=== PATIENT | male | born 1940 | race Caucasian/White ===

== ENCOUNTER 2017-12-27 15:34 | Observation (INO) | payer MEDICARE, BC ==
[2017-12-27 15:59] LABS: #Eosinphils 0.2 thou/uL (0.0-0.7); #Lymphocytes 1.3 thou/uL (1.20-3.40); #Monocytes 0.7 thou/uL (0.11-0.59); #Neutrophils 5.7 thou/uL (1.40-6.50); %Eosinophils 2.9 % (0.0-10.0); %Lymphocytes 16.7 % (21.0-51.0); %Monocytes 8.3 % (0.0-10.0); %Neutrophils 72.1 % (42.0-75.0); Mean Corpuscular HGB CONC 33.1 g/dL (32.0-36.0); Mean Corpuscular Hemoglobin 32.6 pg (27.0-31.0); Mean Corpuscular Volume 98.5 fl (80.0-94.0); Mean Platelet Volume 8.8 fL (7.4-10.4); Platelet Count 249 thou/uL (130-400); Red Blood Cell (RBC) Count 4.59 mill/uL (4.70-6.10); White Blood Cell (WBC) Count 7.9 thou/uL (4.8-10.8)
[2017-12-27 16:19] LABS: ALT (SGPT) 32 U/L (8-55); AST (SGOT) 35 U/L (5-34); Albumin 4.2 g/dL (3.4-4.8); Alkaline Phosphatase 53 U/L (40-150); Anion Gap 11 mmol/L (10-20); BUN (Urea Nitrogen) 12 mg/dL (8.4-25.7); Bilirubin, Total 0.5 mg/dL (0.2-1.2); CK (CPK) 258 U/L (30-200); Calc. Creatinine Clearance 0 mL/min (70-130); Calcium 9.5 mg/dL (7.8-10.44); Carbon Dioxide 30 mmol/L (23-31); Chloride 98 mmol/L (98-107); Estimated GFR-MDRD 79; Globulin 3.1 g/dL (2.4-3.5); Glucose 105 mg/dL (83-110); Potassium 3.9 mmol/L (3.5-5.1); Protein, Total 7.3 g/dL (5.8-8.1); Sodium 135 mmol/L (136-145)
[2017-12-27 16:23] LABS: Troponin I Less than 0.010 ng/mL (< 0.028)
--- NOTE | 2017-12-27 16:28 | RAD ---
ONE VIEW CHEST: History: Altered mental status. Comparison: 05-31-13 FINDINGS: Portable upright chest demonstrates sternotomy wires. Normal cardiac silhouette. The pulmonary vessel s and hilum are normal. Costophrenic angles are clear. No consolidation or mass. No pneumothorax or o sseous abnormalities. IMPRESSION: No acute cardiopulmonary process. POS: [facility]
--- NOTE | 2017-12-27 16:36 | CT ---
CT BRAIN WITHOUT CONTRAST: 12/27/17 HISTORY: Slurred speech, altered mental status. FINDINGS: No evidence of acute infarct, hemorrhage, midline shift or abnormal extra-axial fluid collections are seen. The ventricular size is appropriate and the basilar cisterns patent. The bony calvarium is int act. The visualized paranasal sinuses and mastoid air cells are well aerated. IMPRESSION: No CT evidence of acute intracranial process. POS: [facility]
[2017-12-27 16:37] LABS: CKMB 12.8 ng/mL (0-6.6)
[2017-12-27 18:47] VITALS: BMI 26.7
[2017-12-27] MEDS ORDERED: Ondansetron ODT 4 MG TAB SL PRN (18:50)
[2017-12-27] MEDS ORDERED: Ondansetron HCl/PF 4 MG/2 ML Vial IVP PRN (18:50)
[2017-12-27] MEDS ORDERED: Acetaminophen 325 MG TAB PO PRN ×2 (18:50→23:19)
[2017-12-27] MEDS ORDERED: Labetalol HCl 100 MG/20 ML VIAL SLOW IVP PRN (23:19)
[2017-12-27] MEDS ORDERED: Bisacodyl 5 MG TAB PO PRN (23:19)
[2017-12-27] MEDS ORDERED: hydrALAZINE 20 MG/ML VIAL SLOW IVP PRN (23:19)
[2017-12-27] MEDS ORDERED: Sodium Chloride 0.9% 1,000 ML IV SCH (23:45)
--- NOTE | 2017-12-28 00:09 | HP ---
PRIMARY CARE PHYSICIAN: Duran Mendoza M.D. CHIEF COMPLAINT: Slurred speech. HISTORY OF PRESENT ILLNESS: Mr. Bermudez is a pleasant 77-year-old gentleman who was seen at [facility] on 12/27/2017. He reports that 4 days ago, he developed numbness and stiffness over the right side of his mouth. He also reports difficulty speaking. His noticed yesterday that the right side of his face was dr daksha. He did not seek medical attention. His primary care physician convinced him to go to the [facility] today. The patient reports that his symptoms have improved. His speech is not slurred. REVIEW OF SYSTEMS: The following complete review of systems was negative, unless otherwise mentioned in the HPI or below: Constitutional: Weight loss or gain, ability to conduct usual activities. Skin: Rash, itching. Eyes: Double vision, pain. ENT/Mouth: Nose bleeding, neck stiffness, pain, tenderness. Cardiovascular: Palpitations, dyspnea on exertion, orthopnea. Respiratory: Shortness of breath, wheezing, cough, hemoptysis, fever or night sweats. Gastrointestinal: Poor appetite, abdominal pain, heartburn, nausea, vomiting, constipation, or diarr hea. Genitourinary: Urgency, frequency, dysuria, nocturia. Musculoskeletal: Pain, swelling. Neurologic/Psychiatric: Anxiety, depression. Allergy/Immunologic: Skin rash, bleeding tendency. PAST MEDICAL HISTORY: Significant for coronary artery disease, dyslipidemia, hypertension, and TIA 3 or 4 years ago. PAST SURGICAL HISTORY: Significant for coronary artery bypass graft. SOCIAL HISTORY: The patient drinks alcohol occasionally. He is an ex-smoker. He denies recreationa l drug use. FAMILY HISTORY: He denies any family history of coronary artery disease. ALLERGIES: He has no known drug allergies. CURRENT MEDICATIONS: Include aspirin 81 mg daily, Lipitor 40 mg daily, Nexium 20 mg daily, lisinopri l 40 mg daily, Toprol-XL 50 mg daily, and Centrum Silver multivitamins 1 tablet daily. CODE STATUS: I discussed his code status. He is FULL CODE. PHYSICAL EXAMINATION: GENERAL: On examination, Mr. Bermudez is awake and alert, not in acute distress. VITAL SIGNS: Blood pressure is 131/71, pulse is 59, he is breathing at rate of 16, and saturating 92 % on room air. He is afebrile. EYES: No scleral icterus. No conjunctival pallor. ENT: Moist mucosal membranes, no oropharyngeal erythema or exudates. NECK: Supple, nontender, normal range of movement, trachea is midline. RESPIRATORY: Accessory muscles of breathing are not active. Chest wall movements are symmetric bila terally. Lungs are clear to auscultation without wheeze, rhonchi or crepitations. CARDIOVASCULAR: S1 and S2 are heard, regular. Peripheral pulses are palpable. No carotid bruit, no pericardial rub. ABDOMEN: Soft, nontender, bowel sounds heard, no hepatomegaly, no splenomegaly. NEUROLOGIC: Cranial nerves II-XII are intact. No focal motor or sensory deficits. Deep tendon refl exes 2+, plantar reflexes downgoing bilaterally. MUSCULOSKELETAL: Power is 5/5 in all 4 extremities. SKIN: No rashes or subcutaneous nodules. LYMPHATIC: No cervical lymphadenopathy. PSYCHIATRIC: Normal mood, normal affect, patient is oriented to person, place, and time. LABORATORY DATA AND IMAGING: Mr. Bermudez's labs and investigations were reviewed. I reviewed his el ectrocardiogram, which shows normal sinus rhythm with premature ventricular complexes. I also review ed his chest x-ray, which does not show any pulmonary infiltrates. He also had a noncontrast CT scan of the brain, which did not reveal any acute intracranial process. He has an unremarkable CBC, decr eased sodium of 135, otherwise normal electrolytes, normal creatinine, elevated AST of 35, normal ALT , normal total bilirubin, normal alkaline phosphatase, elevated CK of 258, normal troponin I and norm al albumin. ASSESSMENT AND PLAN: Mr. Bermudez is a pleasant 77-year-old gentleman who was seen at [facility] on 12/27/2017. His problem list includes: 1. Cerebrovascular accident: Mr. Bermudez's presentation is consistent with a cerebrovascular accide nt. Symptoms lasted almost 4 days. He will be admitted to the hospital for further workup, includin g MRI of the brain, 2D echocardiogram, carotid Dopplers and Neurology Service consultation. He will be continued on aspirin. 2. Hyponatremia: Mild, rechecked. 3. Rhabdomyolysis: Mild. Hydrate patient and repeat CK levels. 4. Transaminitis: AST is elevated, likely secondary to rhabdomyolysis. Repeat AST level. 5. Coronary artery disease. Appears stable. 6. Hypertension: Monitor vital signs, titrate antihypertensives as needed. 7. Dyslipidemia: Continue statin. Many thanks for allowing me to participate in your patient's care. Please feel free to contact me wi th any questions or concerns. LEVEL OF RISK: High. LEVEL OF COMPLEXITY: High.
[2017-12-28 05:25] LABS: #Eosinphils 0.4 thou/uL (0.0-0.7); #Lymphocytes 1.2 thou/uL (1.20-3.40); #Monocytes 0.7 thou/uL (0.11-0.59); #Neutrophils 4.4 thou/uL (1.40-6.50); %Basophils 0.5 % (0.0-1.0); %Eosinophils 5.6 % (0.0-10.0); %Lymphocytes 18.4 % (21.0-51.0); %Monocytes 10.2 % (0.0-10.0); %Neutrophils 65.4 % (42.0-75.0); Hemoglobin 13.3 g/dL (14.0-18.0); Mean Corpuscular HGB CONC 32.6 g/dL (32.0-36.0); Mean Corpuscular Volume 98.2 fl (80.0-94.0); Platelet Count 218 thou/uL (130-400); Red Blood Cell (RBC) Count 4.17 mill/uL (4.70-6.10); White Blood Cell (WBC) Count 6.8 thou/uL (4.8-10.8)
[2017-12-28 05:49] LABS: AST (SGOT) 29 U/L (5-34); Anion Gap 11 mmol/L (10-20); BUN (Urea Nitrogen) 11 mg/dL (8.4-25.7); CK (CPK) 205 U/L (30-200); Calc. Creatinine Clearance 94 mL/min (70-130); Calcium 9.4 mg/dL (7.8-10.44); Carbon Dioxide 27 mmol/L (23-31); Cardiac Risk 3.2 (Less than 4.5); Chloride 102 mmol/L (98-107); Cholesterol 103 mg/dl (< 200 Desired); Estimated GFR-MDRD Greater than 90; Glucose 92 mg/dL (83-110); HDL Cholesterol 32 mg/dL (>60 Neg Risk); LDL Cholesterol, Calculated 44 mg/dL; Potassium 3.5 mmol/L (3.5-5.1); Sodium 136 mmol/L (136-145); Triglycerides 134 mg/dL (Less than 150)
--- NOTE | 2017-12-28 07:45 | ULT ---
BILATERAL CAROTID DUPLEX ULTRASOUND: DATE: 12/28/17 HISTORY: CVA. TECHNIQUE: Vidal scale ultrasound with color flow and spectral Doppler imaging of the extracranial carotid artery systems performed. FINDINGS: There is plaque formation on either side. The peak systolic velocity in the right ICA measures 79 cm/second with an end-diastolic velocity of 2 4 cm/second and a systolic ratio of 1.13. The peak systolic velocity in the left ICA measures 71 cm/second with an end-diastolic velocity of 20 cm/second and a systolic ratio of 0.72. Flow in both vertebral arteries remains antegrade. IMPRESSION: No evidence of hemodynamically significant stenosis. POS: [facility]
[2017-12-28 08:06] VITALS: TEMP 98.2
[2017-12-28] MEDS ORDERED: Enoxaparin Sodium 40 MG/0.4 ML SYRINGE SC SCH (09:00)
[2017-12-28] MEDS ORDERED: Lisinopril 20 MG TAB PO SCH (09:00)
[2017-12-28] MEDS ORDERED: Atorvastatin Calcium 40 MG TAB PO SCH (09:00)
[2017-12-28] MEDS ORDERED: Multivitamin W/ Minerals 1 TAB PO SCH (09:00)
[2017-12-28] MEDS ORDERED: Prevnar 13-Val Conj/PF 0.5 ML SYRINGE IM ONE ×2 (09:00→13:00)
--- NOTE | 2017-12-28 09:33 | MRI ---
NONCONTRAST ENHANCED MRI OF BRAIN: Date: 12/28/17 HISTORY: 77-year-old male with history of slurred speech, altered mental status. TECHNIQUE: Multiplanar, multisequence noncontrast enhanced MRI of brain obtained. FINDINGS: Images demonstrate diffuse cortical atrophy and deep white matter ischemic changes. Normal flow-voids seen in the major intracranial vessels. No evidence of acute areas of strokes or masses seen. No evidence of areas of diffusion restriction s een. IMPRESSION: Diffuse cortical atrophy. Otherwise unremarkable noncontrast enhanced MRI of brain. The patient has h ad previous bilateral cataract surgery. POS: [facility]
[2017-12-28 15:27] VITALS: BP 92/48
--- NOTE | 2017-12-28 18:19 | CON ---
DATE OF CONSULTATION: 12/28/2017 CONSULTING PHYSICIAN: Hospitalist service. IMPRESSION: 1. Questionable transient ischemic attack given the lack of findings on MRI despite a prolonged epis ode of left facial weakness. 2. Prior history of cerebrovascular accident. 3. Coronary artery disease. 4. Hyperlipidemia. 5. Hypertension. PLAN: Continue aspirin and statin as previously taken. HISTORY OF PRESENT ILLNESS: Mr. Bermudez is a 77-year-old gentleman who came in for evaluation after awakening with what appeared to be left facial droop and some tingling. This lasted throughout the d ay into the afternoon before resolving. His thought his face looked a bit asymmetric compared t o baseline. No other associated focal findings. He had an MRI of the brain done, which showed some cerebral atrophy. His carotid Doppler did not show any stenosis. Echocardiogram is pending. CBC an d CMP were both unremarkable as lipid ratio was 3.2. PAST MEDICAL HISTORY: As listed above. ALLERGIES: None reported. SOCIAL HISTORY: No tobacco or alcohol use. FAMILY HISTORY: Noncontributory. REVIEW OF SYSTEMS: Otherwise, negative for any other focal neurologic symptoms, headache, nausea, vo miting, vertigo, chest pain, or shortness of breath. PHYSICAL EXAMINATION: GENERAL: He is a healthy appearing elderly man, in no distress. VITAL SIGNS: Notable for blood pressure of 92/48 on one measurement. HEENT: Pupils are equal and reactive. Conjunctivae are clear. Oropharynx clear. Cranium normoceph alic, atraumatic. NECK: No lymphadenopathy noted. EXTREMITIES: No cyanosis noted. NEUROLOGIC: He was alert and cooperative. His speech is fluent and clear. Cranial nerve exam showe d a slight asymmetry in eyelid position, being slightly more open on the left. His blink frequency a ppeared to be symmetric. I did not note any facial weakness on the left as compared to the right. M otor exam showed good strength bilaterally. His gait is steady and independent. No abnormal movemen ts are seen. No tremor dysmetrias present. EKG shows sinus rhythm with occasional PVCs. SUMMARY: This is an elderly gentleman who presented with symptoms of a very mild stroke, which did n ot show up on MRI. I would continue aspirin and statin. He can follow up with Dr. Nunez.
== END 2017-12-28 17:29 | disposition home or self-care (01) ==
LOC: ERS 15:34 → 2SE 17:40
PROVIDERS: ADMIT Internal Medicine Infectious Disease; ATTEND Internal Medicine Infectious Disease
DX: I63.9 Cerebral infarction, unspecified (principal); R47.81 Slurred speech; R29.810 Facial weakness; R41.82 Altered mental status, unspecified; I25.10 Atherosclerotic heart disease of native coronary artery without angina pectoris; E78.5 Hyperlipidemia, unspecified; I10 Essential (primary) hypertension; E87.1 Hypo-osmolality and hyponatremia; M62.82 Rhabdomyolysis; R74.0 Nonspecific elevation of levels of transaminase and lactic acid dehydrogenase [LDH]; Z86.73 Personal history of transient ischemic attack (TIA), and cerebral infarction without residual deficits; Z95.1 Presence of aortocoronary bypass graft; Z79.82 Long term (current) use of aspirin; Z79.899 Other long term (current) drug therapy; Z98.41 Cataract extraction status, right eye; Z98.42 Cataract extraction status, left eye
CPT/HCPCS: 70450; 70551; 71045; 80048; 80053; 80061; 82550 ×2; 82553; 84450; 84484; 85025 ×2; 90670; 93005; 93306; 93880; 94760; 96372; 97139 ×4; 99285; G0009; G0378; G8978; G8979; G8980; G8987; G8988; G8989; 36415; 90471; G8999-GN-CH; G9158-GN-CH; G9186-GN-CH; J1650

== ENCOUNTER 2019-07-27 21:13 | Observation (INO) | payer MEDICARE, BC ==
[~2019-07-27 21:13] MED LIST: Dexamethasone 20 MG/5 ML VIAL ONE; Lidocaine 1% PF 5 ML VIAL ONE; Ondansetron PF 4 MG/2 ML Vial ONE; PHENYLEPHRINE-NS 100 MCG/ML 10 ML SYRINGE ONE; PROPOFOL 200 MG/20 ML VIAL ONE; Succinylcholine Chloride 20 MG/ML 10 ml SYRINGE FS ONE; ePHEDrine 50 MG/ML VIAL ONE
--- NOTE | 2019-07-27 22:17 | CON ---
DATE OF CONSULTATION: 07/27/2019 CHIEF COMPLAINT: "Food stuck in my chest." HISTORY OF PRESENT ILLNESS: Mr. Bermudez is an 78-year-old man, who has had history of gastroesophageal reflux disease and takes Nexium [id number] once daily that keeps these symptoms pretty well controlled for years. For the last 5 years, he has had intermittent solid food dysphagia. The food sticks in the lower substernal region and he can usually drink warm water and wash the bolus down or that will help him vomit with the bolus back up. He gets these episodes around once every couple of months, but he actually had 2 episodes this week. Today, he ate chicken pot pie around 11 a.m. and the food bolus has been stuck since then. He has had no abdominal pain, diarrhea, or constipation. He states that he has had a colonoscopy around 5 or 6 years ago and possibly had polyps removed. This maybe due for followup soon. He has had that done at our office. He had a CT scan in [place] because he possibly threw up some blood. He had some red staining on his shoes. The patient thinks that this might be due to a grape flavored mint that he had, but it does look like blood. He has not had significant amount of ongoing hematemesis. PAST MEDICAL HISTORY: Coronary artery disease, status post coronary artery bypass graft, hyperlipidemia, and hypertension. PAST SURGICAL HISTORY: Coronary artery bypass graft and colonoscopy. FAMILY HISTORY: Negative for GI malignancies. SOCIAL HISTORY: No alcohol, tobacco, or drugs. ALLERGIES: NO KNOWN DRUG ALLERGIES. MEDICATIONS: Currently, prior to admission, 1. Aspirin. 2. Lipitor. 3. Lisinopril. 4. Toprol. 5. Hydrochlorothiazide. 6. Motrin. 7. Flexeril. 8. Nexium 20 mg daily [id number]. REVIEW OF SYSTEMS: Negative x10 systems reviewed, except as stated in the history of present illness. PHYSICAL EXAMINATION: VITAL SIGNS: Blood pressure 167/66, temperature 97.3, pulse 56. GENERAL: He is in no acute distress. Alert and oriented x3. HEENT: Eyes have no scleral icterus. Oropharynx is clear without lesions. No cervical or supraclavicular lymphadenopathy. LUNGS: Clear to auscultation bilaterally. HEART: Regular rate and rhythm without murmur. ABDOMEN: Soft, nontender, and nondistended. Bowel sounds are present. EXTREMITIES: No lower extremity edema. IMPRESSION: 1. Esophageal food bolus impaction since around noon today. 2. Possible mild low volume hematemesis. 3. History of gastroesophageal reflux disease, which has symptomatically been controlled otherwise with Nexium 20 mg daily. RECOMMENDATIONS: EGD this evening to remove the food bolus. Job ID: [id number]
[2019-07-27] MEDS ORDERED: Promethazine HCl 25 MG/ML VIAL SLOW IVP PRN (22:42)
[2019-07-27] MEDS ORDERED: Promethazine HCl 25 MG/ML VIAL IM PRN (22:42)
[2019-07-27] MEDS ORDERED: Ondansetron HCl/PF 4 MG/2 ML Vial IVP PRN (22:42)
[2019-07-27] MEDS ORDERED: Sodium Chloride 0.9% (PF) 10 ML VIAL FS PRN (23:04)
[2019-07-27] MEDS ORDERED: Pantoprazole 40 MG VIAL IVP SCH (23:15)
--- NOTE | 2019-07-27 23:39 | PDOC.EVN ---
Event Note - Event Note Event Note: [id number] H7P dictated
[2019-07-28 00:16] VITALS: BMI 26.0
--- NOTE | 2019-07-28 02:13 | HP ---
CHIEF COMPLAINT: Food stuck in my chest. HISTORY OF PRESENT ILLNESS: Mr. Bermudez is an 78-year-old male with past medical history of coronary artery disease, coronary artery bypass graft surgery, hypertension, hyperlipidemia, presents to the emergency room with food stuck in his chest. CT scan done at [place] showed esophageal fluid bolus obstruction and dilatation. The patient underwent EGD by [employer] with removal of the fluid bolus. As per GI, there was a tear under the bolus for which the patient will be admitted tonight, monitored, start on IV proton pump inhibitor. PAST MEDICAL HISTORY: 1. Coronary artery disease. 2. Coronary artery bypass graft surgery. 3. Hyperlipidemia. 4. Hypertension. PAST SURGICAL HISTORY: 1. Coronary artery bypass graft surgery. 2. Colonoscopy. FAMILY HISTORY: Reviewed and noncontributory. SOCIAL HISTORY: Denies smoking, alcohol drinking, or drug abuse. ALLERGIES: NO KNOWN ALLERGIES. HOME MEDICATIONS: The patient is on; 1. Aspirin. 2. Lipitor. 3. Lisinopril. 4. Toprol. 5. Hydrochlorothiazide. 6. Motrin. 7. Flexeril. 8. Nexium. REVIEW OF SYSTEMS: Review of 14 systems negative except what is mentioned in history of present illness. PHYSICAL EXAMINATION: GENERAL: The patient is awake, alert, does not appear to be in acute distress. VITAL SIGNS: Blood pressure is 140/80, pulse is 60, respiratory rate is 16, temperature 97.3. HEAD AND NECK: Normocephalic, atraumatic. Neck is supple. No JVD. CHEST: Fair bilateral air entry. HEART: S1, S2. Regular. ABDOMEN: Soft, nontender. Bowel sounds present. NEUROLOGIC: Awake, alert, oriented x3. PSYCH: Normal mood. EXTREMITIES: No clubbing, no cyanosis. LABORATORY DATA: 1. Esophageal food bolus impaction, status post EGD with removal. 2. Esophageal injury post food bolus impaction. 3. Coronary artery disease, history of coronary artery bypass graft surgery. 4. Hypertension. 5. Hyperlipidemia. PLAN: 1. The patient will be admitted for monitoring overnight. 2. Clear liquids, diet as per [employer]. 3. IV proton pump inhibitor. 4. Reconcile home medications. 5. DVT prophylaxis, SCD. 6. Expected length of stay one midnight with possible discharge home in a.m. if patient is stable and CBC is stable. Job ID: [id number]
--- NOTE | 2019-07-28 02:21 | OP ---
DATE OF PROCEDURE: 07/27/2019 PROCEDURES PERFORMED: Esophagogastroduodenoscopy with removal of esophageal foreign body and balloon dilation of an esophageal stricture. PREOPERATIVE DIAGNOSES: Esophageal foreign body and hematemesis. DESCRIPTION OF PROCEDURE: Informed consent was obtained from the patient. He was sedated with general anesthesia. The endoscope was advanced to the esophagus where a large food bolus was encountered. There was bloody liquid in the esophagus as well. There was a tear in the esophagus that was there prior to the procedure secondary to the patient's retching. The esophagus had a wide shallow tear from 29-36 cm. This had a couple of blood clots in the base and 1 area of very slight oozing. The food bolus was grasped with a Saenz Net and pulled out in multiple pieces. Ultimately, the remainder of the bolus could be pushed through the stricture into the stomach. There was a stricture at the distal esophagus that was just barely large enough for the therapeutic endoscope to pass through. This was dilated to 16.5 mm with a balloon dilator. First, it was dilated to 15 and then 16.5 mm, which is stage II of the balloon. There was an appropriate shallow tear at the dilation site. The stomach still had retained food particles in the body and antrum of the stomach. There was also a small amount of fluid and retained food in the second portion of the duodenum. IMPRESSION: 1. Esophageal food bolus impaction, removed with the Saenz Net. 2. Esophageal stricture dilated to 16.5 mm with a balloon dilator. 3. Mid to distal esophageal tear from 29-36 cm, which was there from the patient's retching secondary to the food bolus prior to admission. This explains patient's hematemesis. There were a couple of adherent blood clots to this tear. There was no active bleeding at the end of the procedure. 4. Retained food contents in the stomach and duodenum. RECOMMENDATIONS: 1. Proton pump inhibitor twice daily. 2. Follow up in GI Clinic in 1 month. Followup EGD can be performed to further dilate the stricture. 3. Given the significant tear in his esophagus and mild bleeding and late night anesthesia in an 78-year-old patient, I will admit him observation overnight and anticipate discharge home tomorrow morning. 4. Full liquid diet. Job ID: [id number]
[2019-07-28 05:55] LABS: #Lymphocytes 0.6 thou/uL (1.20-3.40); #Monocytes 0.3 thou/uL (0.11-0.59); #Neutrophils 10.5 thou/uL (1.40-6.50); %Basophils 0.2 % (0.0-1.0); %Lymphocytes 4.8 % (21.0-51.0); %Monocytes 2.9 % (0.0-10.0); %Neutrophils 92.1 % (42.0-75.0); Hemoglobin 11.7 g/dL (14.0-18.0); Mean Corpuscular HGB CONC 33.7 g/dL (32.0-36.0); Mean Corpuscular Hemoglobin 33.1 pg (27.0-31.0); Mean Corpuscular Volume 98.1 fL (78.0-98.0); Mean Platelet Volume 9.4 fL (7.4-10.4); Platelet Count 191 thou/uL (130-400); RBC Distribution Width 11.9 % (11.5-14.5); Red Blood Cell (RBC) Count 3.54 mill/uL (4.70-6.10); White Blood Cell (WBC) Count 11.4 thou/uL (4.8-10.8)
[2019-07-28] MEDS ORDERED: Pantoprazole 40 MG VIAL IVP SCH (09:00)
[2019-07-28 10:48] VITALS: BP 106/65; TEMP 98.5
--- NOTE | 2019-07-28 12:47 | PRG ---
DATE OF SERVICE: 07/28/2019 SUBJECTIVE: Mr. Bermudez has had no chest pain or abdominal pain. He is swallowing full liquids without difficulty. OBJECTIVE: VITAL SIGNS: Temperature 98.5, pulse 59, and blood pressure 109/65. GENERAL: He is in no acute distress. Alert and oriented x3. LUNGS: Clear to auscultation bilaterally. HEART: Regular rate and rhythm without murmur. ABDOMEN: Soft, nontender, and nondistended. Bowel sounds are present. EXTREMITIES: No lower extremity edema. LABORATORY DATA: Hemoglobin is 11.7. IMPRESSION: 1. Esophageal food bolus impaction, relieved by esophagogastroduodenoscopy last night. 2. Distal esophageal stricture, dilated to 16.5 mm with a balloon dilator. 3. Esophageal tear from 29 to 36 cm secondary to retching prior to presentation to the emergency room. 4. Hematemesis, resolved. There is no ongoing overt bleeding. RECOMMENDATIONS: 1. He will be discharged home today on Nexium 20 mg p.o. twice daily. He has been taking this over the counter. 2. Follow up in GI Clinic. 3. He will also continue on his medications, which are the same as prior to admission, which include lisinopril 40 mg daily, aspirin 81 mg daily, atorvastatin 40 mg daily, hydrochlorothiazide 12.5 mg daily, metoprolol 50 mg daily, and multiple vitamin. Job ID: [id number]
== END 2019-07-28 11:03 | disposition home or self-care (01) ==
LOC: SDC 21:13 → T4-B 22:53
PROVIDERS: ADMIT Internal Medicine; ATTEND Internal Medicine
PROC: 0D758ZZ Dilation of Esophagus, Via Natural or Artificial Opening Endoscopic (ICD-10-PCS; principal; 2019-07-27)
PROC: 0DC58ZZ Extirpation of Matter from Esophagus, Via Natural or Artificial Opening Endoscopic (ICD-10-PCS; 2019-07-27)
DX: K22.2 Esophageal obstruction (principal); T18.128A Food in esophagus causing other injury, initial encounter; S27.813A Laceration of esophagus (thoracic part), initial encounter; K21.9 Gastro-esophageal reflux disease without esophagitis; I25.10 Atherosclerotic heart disease of native coronary artery without angina pectoris; E78.5 Hyperlipidemia, unspecified; I10 Essential (primary) hypertension; Z79.82 Long term (current) use of aspirin; Z79.899 Other long term (current) drug therapy; Z95.1 Presence of aortocoronary bypass graft
CPT/HCPCS: 43247; 43249; 85025; 96374; 96376; G0378 ×2; 36415; C9113; J1100; J2001; J2405; J2704; J3490

== ENCOUNTER 2020-03-04 06:03 | Day surgery (SDC) | payer MEDICARE, BC ==
[2020-03-03 08:34] VITALS: BMI 26.5
[2020-03-04] MEDS ORDERED: Heparin 10,000 UNITS/1 ML VIAL ONE (06:32)
[2020-03-04] MEDS ORDERED: Fentanyl 100 MCG/2 ML VIAL ONE (07:00)
[2020-03-04] MEDS ORDERED: Midazolam HCl 2 mg/2 ml Vial ONE (07:00)
[2020-03-04] MEDS ORDERED: Protamine Sulfate 50 MG/5 ML VIAL ONE (07:40)
[2020-03-04] MEDS ORDERED: Iopamidol 370 76% 100 ML VIAL ONE (09:02)
[2020-03-04] MEDS ORDERED: Iopamidol 370 76% 50 ML VIAL FS ONE (09:02)
--- NOTE | 2020-03-04 14:03 | EKG ---
Test Reason : PREOP Blood Pressure : / mmHG Vent. Rate : 061 BPM Atrial Rate : 061 BPM P-R Int : 278 ms QRS Dur : 104 ms QT Int : 436 ms P-R-T Axes : 049 023 018 degrees QTc Int : 438 ms Sinus rhythm with 1st degree A-V block with occasional Premature ventricular complexes and Premature atrial complexes Low voltage QRS When compared with ECG of 23-APR-2018 22:06, Premature atrial complexes are now Present Confirmed by DR. Astrid TAI ([id number]) on 03/04/2020 2:02:58 PM Referred By: RADHA Confirmed By:DR. Astrid TAI
--- NOTE | 2020-03-05 05:34 | DIS ---
DATE OF ADMISSION: 03/04/2020 DATE OF DISCHARGE: 03/04/2020 Mr. Bermudez underwent cardiac catheterization, which revealed all five bypass grafts to be patent; however, with significant distal disease. Ranexa 1000 mg one half tablet b.i.d. x6 days and then one tablet b.i.d. will be started. Consideration also may be given to addition of nitrates in the future and/or low-dose Xarelto if he continues to have symptoms. Job ID: [id number]
== END 2020-03-04 15:00 | disposition home or self-care (01) ==
LOC: CCL 06:03
PROVIDERS: ATTEND Internal Medicine Cardiovascular Disease
PROC: 4A023N7 Measurement of Cardiac Sampling and Pressure, Left Heart, Percutaneous Approach (ICD-10-PCS; principal; 2020-03-04)
PROC: B2111ZZ Fluoroscopy of Multiple Coronary Arteries using Low Osmolar Contrast (ICD-10-PCS; 2020-03-04)
DX: I25.10 Atherosclerotic heart disease of native coronary artery without angina pectoris (principal); I10 Essential (primary) hypertension; E78.00 Pure hypercholesterolemia, unspecified; I48.91 Unspecified atrial fibrillation; Z79.82 Long term (current) use of aspirin; Z79.899 Other long term (current) drug therapy; Z87.891 Personal history of nicotine dependence; Z95.1 Presence of aortocoronary bypass graft; Z95.5 Presence of coronary angioplasty implant and graft
CPT/HCPCS: 85347; 93005; 93010; 93459; 99152; C1769; J1644; J2250; J2720; J3010; Q9967

== ENCOUNTER 2021-10-10 13:49 | Inpatient (IN) | payer MEDICARE, BC ==
[2021-10-10 14:29] LABS: #Basophils 0.1 thou/uL (0.0-0.2); #Eosinphils 0.2 thou/uL (0.0-0.7); #Lymphocytes 1.3 thou/uL (1.20-3.40); #Monocytes 0.9 thou/uL (0.11-0.59); %Eosinophils 3.7 % (0.0-10.0); %Lymphocytes 20.1 % (21.0-51.0); %Neutrophils 61.1 % (42.0-75.0); Mean Corpuscular HGB CONC 34.8 g/dL (32.0-36.0); Mean Corpuscular Hemoglobin 35.8 pg (27.0-31.0); Mean Platelet Volume 8.5 fL (7.4-10.4); Platelet Count 215 thou/uL (130-400); RBC Distribution Width 11.2 % (11.5-14.5); White Blood Cell (WBC) Count 6.6 thou/uL (4.8-10.8)
[2021-10-10 14:52] LABS: ALT (SGPT) 15 U/L (8-55); AST (SGOT) 18 U/L (5-34); Albumin 3.9 g/dL (3.4-4.8); Alkaline Phosphatase 50 U/L (40-110); Anion Gap 13 mmol/L (10-20); BUN (Urea Nitrogen) 13 mg/dL (8.4-25.7); Bilirubin, Total 0.5 mg/dL (0.2-1.2); Calc. Creatinine Clearance 0 mL/min (70-130); Carbon Dioxide 26 mmol/L (23-31); Chloride 103 mmol/L (98-107); Globulin 2.8 g/dL (2.4-3.5); Glucose 98 mg/dL (83-110); Potassium 4.5 mmol/L (3.5-5.1); Protein, Total 6.7 g/dL (5.8-8.1); Sodium 137 mmol/L (136-145)
[2021-10-10] MEDS ORDERED: Nitroglycerin 0.4 MG TAB (25 Tab Bottle) SL PRN (17:39)
[2021-10-10] MEDS ORDERED: Aspirin 325 mg Enteric Coated Tablet PO SCH (17:45)
[2021-10-10 17:56] VITALS: BMI 29.2
[2021-10-10 17:56] LABS: Troponin I Less than 0.010 ng/mL (< 0.028)
[2021-10-10 21:21] LABS: Troponin I Less than 0.010 ng/mL (< 0.028)
[2021-10-11 08:43] LABS: SARS-CoV-2 PCR by NAA Not Detected (NotDetected)
[2021-10-11] MEDS ORDERED: Aspirin 325 mg Enteric Coated Tablet PO SCH (09:00)
[2021-10-11] MEDS: Lisinopril 20 MG TAB PO SCH (12:43)
[2021-10-11] MEDS: Rivaroxaban 2.5 MG TAB PO SCH (20:42)
[2021-10-11] MEDS ORDERED: Atorvastatin Calcium 40 MG TAB PO SCH (21:00)
[2021-10-11] MEDS ORDERED: Multivitamin W/ Minerals 1 TAB PO SCH (21:00)
[2021-10-11] MEDS ORDERED: Melatonin 3 MG TAB PO PRN (22:14)
[2021-10-11] MEDS ORDERED: Metoprolol Tartrate 25 MG TAB PO SCH (22:53)
[2021-10-12] MEDS: Lisinopril 20 MG TAB PO SCH (08:30)
[2021-10-12] MEDS: Rivaroxaban 2.5 MG TAB PO SCH (08:31)
[2021-10-12] MEDS ORDERED: Ezetimibe 10 MG TAB PO SCH (09:00)
[2021-10-12] MEDS ORDERED: Aspirin 81 mg Enteric Coated Tablet PO SCH (09:00)
[2021-10-12 15:51] VITALS: BP 91/55; TEMP 97.7
== END 2021-10-12 17:15 | disposition home or self-care (01) | DRG 313 ==
LOC: ERS 13:49 → 2SW 15:54 → OBSVTOIN 10-11 14:12
PROVIDERS: ADMIT Internal Medicine; ATTEND Internal Medicine
DX: R07.89 Other chest pain (principal); I44.2 Atrioventricular block, complete; I25.10 Atherosclerotic heart disease of native coronary artery without angina pectoris; E78.5 Hyperlipidemia, unspecified; I10 Essential (primary) hypertension; Z20.822 Contact with and (suspected) exposure to COVID-19; Z79.82 Long term (current) use of aspirin; Z79.899 Other long term (current) drug therapy; Z95.1 Presence of aortocoronary bypass graft; Z95.5 Presence of coronary angioplasty implant and graft; Z87.891 Personal history of nicotine dependence
CPT/HCPCS: 36415; 71045; 78451; 80053; 83880; 84484; 85025; 93005; A9500; G0378; U0003; U0005

== ENCOUNTER 2022-01-09 13:19 | Inpatient (IN) | payer MEDICARE, BC ==
[~2022-01-09 13:19] MED LIST changes: -Dexamethasone 20 MG/5 ML VIAL ONE; +Iopamidol 370 76% 100 ML VIAL ONE; -Lidocaine 1% PF 5 ML VIAL ONE; -Ondansetron PF 4 MG/2 ML Vial ONE; -PHENYLEPHRINE-NS 100 MCG/ML 10 ML SYRINGE ONE; -PROPOFOL 200 MG/20 ML VIAL ONE; -Succinylcholine Chloride 20 MG/ML 10 ml SYRINGE FS ONE; -ePHEDrine 50 MG/ML VIAL ONE
[2022-01-09 13:58] LABS: #Lymphocytes 1.1 thou/uL (1.20-3.40); #Monocytes 1.5 thou/uL (0.11-0.59); %Basophils 0.1 % (0.0-1.0); %Eosinophils 0.1 % (0.0-10.0); %Lymphocytes 6.9 % (21.0-51.0); %Monocytes 9.4 % (0.0-10.0); %Neutrophils 83.5 % (42.0-75.0); Hemoglobin 14.4 g/dL (14.0-18.0); Mean Corpuscular HGB CONC 33.6 g/dL (32.0-36.0); Mean Platelet Volume 9.4 fL (7.4-10.4); Platelet Count 223 thou/uL (130-400); RBC Distribution Width 11.7 % (11.5-14.5); Red Blood Cell (RBC) Count 4.12 mill/uL (4.70-6.10); White Blood Cell (WBC) Count 15.5 thou/uL (4.8-10.8)
[2022-01-09 14:12] LABS: ALT (SGPT) 14 U/L (8-55); AST (SGOT) 17 U/L (5-34); Albumin 4.2 g/dL (3.4-4.8); Alkaline Phosphatase 45 U/L (40-110); Anion Gap 15 mmol/L (10-20); BUN (Urea Nitrogen) 23 mg/dL (8.4-25.7); CK (CPK) 65 U/L (30-200); Calc. Creatinine Clearance 0 mL/min (70-130); Calcium 9.2 mg/dL (7.8-10.44); Carbon Dioxide 25 mmol/L (23-31); Chloride 100 mmol/L (98-107); Globulin 3.5 g/dL (2.4-3.5); Glucose 114 mg/dL (83-110); Lipase 24 U/L (8-78); Potassium 4.1 mmol/L (3.5-5.1); Protein, Total 7.7 g/dL (5.8-8.1); Sodium 136 mmol/L (136-145)
[2022-01-09 14:47] LABS: Bilirubin Negative (Negative); Blood, Urine Trace (Negative); Clarity Clear (Clear); Glucose, Urine (Dipstick) Normal (Negative); Ketone, Urine Negative (Negative); Leukocyte Negative Leu/uL (Negative); Nitrite Negative (Negative); Protein, Urine (Dipstick) 20 mg/dL (Neg-Trace); RBC/HPF 0-3 HPF (0-3); Specific Gravity, Urine 1.026 (1.002-1.036); Squamous Epithelial 0-3 HPF (0-3); Urobilinogen Normal mg/dL (Less than 2); WBC/HPF 0-3 HPF (0-3); pH, Urine 5.5 (5.0-9.0)
[2022-01-09 14:56] LABS: Bacteria/HPF Rare-Few HPF (None Seen)
[2022-01-09] MEDS ORDERED: Ondansetron PF 4 MG/2 ML Vial IVP PRN (18:06)
[2022-01-09] MEDS ORDERED: Acetaminophen 325 MG TAB PO PRN (18:06)
[2022-01-09] MEDS ORDERED: Ondansetron ODT 4 MG TAB PO PRN (18:06)
[2022-01-09] MEDS ORDERED: Senokot S 8.6-50 MG TAB PO PRN (18:06)
[2022-01-09 19:44] LABS: SARS-CoV-2 NAA Rapid Test Not Detected (NotDetected)
[2022-01-09] MEDS: Sodium Chloride 0.9% 1,000 ML IV SCH (20:57)
[2022-01-10 01:00] VITALS: BMI 26.5
[2022-01-10 04:42] LABS: #Lymphocytes 1.3 thou/uL (1.20-3.40); #Monocytes 1.8 thou/uL (0.11-0.59); #Neutrophils 11.7 thou/uL (1.40-6.50); %Eosinophils 0.1 % (0.0-10.0); %Lymphocytes 8.5 % (21.0-51.0); %Monocytes 12.2 % (0.0-10.0); %Neutrophils 79.2 % (42.0-75.0); Hemoglobin 12.9 g/dL (14.0-18.0); Mean Corpuscular Hemoglobin 34.1 pg (27.0-31.0); Mean Platelet Volume 9.6 fL (7.4-10.4); Platelet Count 190 thou/uL (130-400); RBC Distribution Width 11.7 % (11.5-14.5); Red Blood Cell (RBC) Count 3.79 mill/uL (4.70-6.10); White Blood Cell (WBC) Count 14.7 thou/uL (4.8-10.8)
[2022-01-10 05:05] LABS: Anion Gap 12 mmol/L (10-20); BUN (Urea Nitrogen) 21 mg/dL (8.4-25.7); Calc. Creatinine Clearance 70 mL/min (70-130); Calcium 8.7 mg/dL (7.8-10.44); Carbon Dioxide 24 mmol/L (23-31); Cardiac Risk 2.4 (Less than 4.5); Chloride 100 mmol/L (98-107); Cholesterol 104 mg/dl (< 200 Desired); Glucose 108 mg/dL (83-110); HDL Cholesterol 44 mg/dL (>60 Neg Risk); LDL Cholesterol, Calculated 43 mg/dL; Potassium 3.2 mmol/L (3.5-5.1); Sodium 133 mmol/L (136-145); Triglycerides 84 mg/dL (Less than 150)
[2022-01-10] MEDS: Hydrochlorothiazide 25 MG TAB PO SCH (10:40)
[2022-01-10] MEDS: Ezetimibe 10 MG TAB PO SCH (10:46)
[2022-01-10] MEDS: Aspirin 81 mg Enteric Coated Tablet PO SCH (10:47)
[2022-01-10] MEDS: Sodium Chloride 0.9% 1,000 ML IV SCH (10:47)
[2022-01-10] MEDS: Lisinopril 20 MG TAB PO SCH (10:47)
[2022-01-10] MEDS: Rivaroxaban 2.5 MG TAB PO SCH ×2 (10:48→21:00)
[2022-01-10] MEDS ORDERED: Potassium Chloride 20 MEQ TAB PO SCH (11:30)
[2022-01-10] MEDS: Atorvastatin Calcium 40 MG TAB PO SCH (20:32)
[2022-01-10] MEDS: Multivitamin W/ Minerals 1 TAB PO SCH (20:32)
[2022-01-10] MEDS: Donepezil HCl 10 MG TAB PO SCH (20:32)
[2022-01-10 20:47] LABS: Magnesium 1.8 mg/dL (1.6-2.6); Potassium 3.8 mmol/L (3.5-5.1)
[2022-01-11 04:43] LABS: #Lymphocytes 0.9 thou/uL (1.20-3.40); #Monocytes 1.5 thou/uL (0.11-0.59); #Neutrophils 10.8 thou/uL (1.40-6.50); %Eosinophils 0.2 % (0.0-10.0); %Lymphocytes 6.6 % (21.0-51.0); %Monocytes 11.4 % (0.0-10.0); %Neutrophils 81.8 % (42.0-75.0); Hemoglobin 11.7 g/dL (14.0-18.0); Mean Corpuscular HGB CONC 33.3 g/dL (32.0-36.0); Mean Corpuscular Hemoglobin 34.3 pg (27.0-31.0); Mean Platelet Volume 9.5 fL (7.4-10.4); Platelet Count 166 thou/uL (130-400); RBC Distribution Width 11.7 % (11.5-14.5); Red Blood Cell (RBC) Count 3.42 mill/uL (4.70-6.10); White Blood Cell (WBC) Count 13.2 thou/uL (4.8-10.8)
[2022-01-11 05:48] LABS: Anion Gap 11 mmol/L (10-20); BUN (Urea Nitrogen) 31 mg/dL (8.4-25.7); Calc. Creatinine Clearance 46 mL/min (70-130); Carbon Dioxide 23 mmol/L (23-31); Chloride 102 mmol/L (98-107); Glucose 90 mg/dL (83-110); Potassium 3.9 mmol/L (3.5-5.1); Sodium 132 mmol/L (136-145)
[2022-01-11] MEDS: Aspirin 81 mg Enteric Coated Tablet PO SCH (08:36)
[2022-01-11] MEDS: Ezetimibe 10 MG TAB PO SCH (08:37)
[2022-01-11] MEDS: Rivaroxaban 2.5 MG TAB PO SCH ×2 (08:37→20:43)
[2022-01-11] MEDS: Lisinopril 20 MG TAB PO SCH (08:38)
[2022-01-11] MEDS: Hydrochlorothiazide 25 MG TAB PO SCH (08:38)
[2022-01-11] MEDS: Sodium Chloride 0.9% 1,000 ML IV SCH ×2 (09:41→20:46)
[2022-01-11] MEDS: Cefepime 1 GM in Sodium Chloride 0.9% 100 ML IVPB SCH (11:11)
[2022-01-11] MEDS: Donepezil HCl 10 MG TAB PO SCH (20:34)
[2022-01-11] MEDS: Multivitamin W/ Minerals 1 TAB PO SCH (20:35)
[2022-01-11] MEDS: Atorvastatin Calcium 40 MG TAB PO SCH (20:35)
[2022-01-12 05:08] LABS: #Eosinphils 0.1 thou/uL (0.0-0.7); #Lymphocytes 0.9 thou/uL (1.20-3.40); #Monocytes 1.4 thou/uL (0.11-0.59); #Neutrophils 8.4 thou/uL (1.40-6.50); %Eosinophils 0.8 % (0.0-10.0); %Lymphocytes 8.4 % (21.0-51.0); %Monocytes 13.1 % (0.0-10.0); %Neutrophils 77.6 % (42.0-75.0); Hemoglobin 11.6 g/dL (14.0-18.0); Mean Corpuscular HGB CONC 33.4 g/dL (32.0-36.0); Mean Corpuscular Hemoglobin 34.5 pg (27.0-31.0); Mean Platelet Volume 9.7 fL (7.4-10.4); Platelet Count 159 thou/uL (130-400); RBC Distribution Width 11.8 % (11.5-14.5); Red Blood Cell (RBC) Count 3.37 mill/uL (4.70-6.10); White Blood Cell (WBC) Count 10.9 thou/uL (4.8-10.8)
[2022-01-12 05:29] LABS: Anion Gap 11 mmol/L (10-20); BUN (Urea Nitrogen) 24 mg/dL (8.4-25.7); Calc. Creatinine Clearance 66 mL/min (70-130); Carbon Dioxide 21 mmol/L (23-31); Chloride 105 mmol/L (98-107); Glucose 99 mg/dL (83-110); Potassium 3.6 mmol/L (3.5-5.1); Sodium 133 mmol/L (136-145)
[2022-01-12] MEDS: Sodium Chloride 0.9% 1,000 ML IV SCH ×3 (05:37→20:15)
[2022-01-12] MEDS: Aspirin 81 mg Enteric Coated Tablet PO SCH (08:12)
[2022-01-12] MEDS: Ezetimibe 10 MG TAB PO SCH (08:12)
[2022-01-12] MEDS: Lisinopril 20 MG TAB PO SCH (08:13)
[2022-01-12] MEDS ORDERED: Iopamidol-370 76% 500 ML 1 ML ONE (09:20)
[2022-01-12] MEDS: Rivaroxaban 2.5 MG TAB PO SCH ×2 (09:42→20:26)
[2022-01-12] MEDS: Cefepime 1 GM in Sodium Chloride 0.9% 100 ML IVPB SCH (12:04)
[2022-01-12] MEDS: Donepezil HCl 10 MG TAB PO SCH (20:25)
[2022-01-12] MEDS: Atorvastatin Calcium 40 MG TAB PO SCH (20:25)
[2022-01-12] MEDS: Multivitamin W/ Minerals 1 TAB PO SCH (20:26)
[2022-01-13] MEDS: Cefepime 1 GM in Sodium Chloride 0.9% 100 ML IVPB SCH ×3 (05:55→20:51)
[2022-01-13] MEDS: Aspirin 81 mg Enteric Coated Tablet PO SCH (09:45)
[2022-01-13] MEDS: Ezetimibe 10 MG TAB PO SCH (09:45)
[2022-01-13] MEDS: Rivaroxaban 2.5 MG TAB PO SCH ×2 (09:48→20:51)
[2022-01-13] MEDS: Lisinopril 20 MG TAB PO SCH (09:50)
[2022-01-13] MEDS: Benzonatate 100 MG CAP PO PRN (18:39)
[2022-01-13] MEDS: Atorvastatin Calcium 40 MG TAB PO SCH (20:45)
[2022-01-13] MEDS: Multivitamin W/ Minerals 1 TAB PO SCH (20:45)
[2022-01-13] MEDS: Donepezil HCl 10 MG TAB PO SCH (20:45)
[2022-01-14 04:43] LABS: #Eosinphils 0.3 thou/uL (0.0-0.7); #Lymphocytes 0.9 thou/uL (1.20-3.40); #Monocytes 1.1 thou/uL (0.11-0.59); #Neutrophils 9.2 thou/uL (1.40-6.50); %Basophils 0.1 % (0.0-1.0); %Eosinophils 2.4 % (0.0-10.0); %Lymphocytes 7.6 % (21.0-51.0); %Monocytes 9.8 % (0.0-10.0); Hemoglobin 11.2 g/dL (14.0-18.0); Mean Corpuscular HGB CONC 31.3 g/dL (32.0-36.0); Mean Corpuscular Hemoglobin 32.4 pg (27.0-31.0); Mean Platelet Volume 9.6 fL (7.4-10.4); Platelet Count 173 thou/uL (130-400); RBC Distribution Width 11.8 % (11.5-14.5); Red Blood Cell (RBC) Count 3.45 mill/uL (4.70-6.10); White Blood Cell (WBC) Count 11.4 thou/uL (4.8-10.8)
[2022-01-14 05:05] LABS: Anion Gap 12 mmol/L (10-20); BUN (Urea Nitrogen) 16 mg/dL (8.4-25.7); Calc. Creatinine Clearance 80 mL/min (70-130); Carbon Dioxide 21 mmol/L (23-31); Chloride 105 mmol/L (98-107); Potassium 3.6 mmol/L (3.5-5.1); Sodium 134 mmol/L (136-145)
[2022-01-14 05:06] LABS: Calcium 8.2 mg/dL (7.8-10.44); Glucose 96 mg/dL (83-110)
[2022-01-14] MEDS: Aspirin 81 mg Enteric Coated Tablet PO SCH (08:45)
[2022-01-14] MEDS: Ezetimibe 10 MG TAB PO SCH (08:46)
[2022-01-14] MEDS: Lisinopril 20 MG TAB PO SCH (08:47)
[2022-01-14] MEDS: Rivaroxaban 2.5 MG TAB PO SCH (08:48)
[2022-01-14] MEDS: Benzonatate 100 MG CAP PO PRN (09:03)
[2022-01-14] MEDS: Sodium Chloride 0.9% 1,000 ML IV SCH (15:23)
[2022-01-14 16:10] VITALS: BP 120/59; TEMP 96.9
== END 2022-01-14 19:16 | disposition swing bed (61) | DRG 71 ==
LOC: ERS 13:19 → 2NO 17:20 → OBSVTOIN 01-11 16:17
PROVIDERS: ADMIT Internal Medicine; ATTEND Internal Medicine
DX: G93.41 Metabolic encephalopathy (principal); E87.1 Hypo-osmolality and hyponatremia; Z20.822 Contact with and (suspected) exposure to COVID-19; I48.91 Unspecified atrial fibrillation; F03.90 Unspecified dementia, unspecified severity, without behavioral disturbance, psychotic disturbance, mood disturbance, and anxiety; I10 Essential (primary) hypertension; I25.10 Atherosclerotic heart disease of native coronary artery without angina pectoris; E78.5 Hyperlipidemia, unspecified; K21.9 Gastro-esophageal reflux disease without esophagitis; D72.829 Elevated white blood cell count, unspecified; D53.9 Nutritional anemia, unspecified; I95.89 Other hypotension; N40.0 Benign prostatic hyperplasia without lower urinary tract symptoms; Z86.73 Personal history of transient ischemic attack (TIA), and cerebral infarction without residual deficits; Z95.1 Presence of aortocoronary bypass graft; Z95.5 Presence of coronary angioplasty implant and graft; Z79.899 Other long term (current) drug therapy; Z79.82 Long term (current) use of aspirin
CPT/HCPCS: 36415; 36416; 51701; 70450; 70551; 71045; 71260; 74177; 74230; 80048; 80053; 80061; 81003; 81015; 82140; 82550; 82607; 82746; 83605; 83690; 83735; 84443; 84484; 85025; 87040; 87086; 87149; 87804; 93005; 93010; 93306; 93880; 95712; 95819; 95957; 96374; G0378; J0692; J3490; J7050; Q9967; U0002